=== PATIENT | female | born 1985 | race Caucasian/White ===

== ENCOUNTER 2020-01-29 17:33 | Emergency (ER) | payer OTHER ==
[~2020-01-29] VITALS: Ht 167.6 cm; Wt 83.9 kg
[2020-01-29 18:45] VITALS: BP 111/66
--- NOTE | 2020-01-29 19:17 | NUR ---
PCR SWAB collected via [employer] route.
--- NOTE | 2020-01-29 19:53 | NUR ---
PT DISCHARGED BY IZABELLA SERRANO WITH VSS.
== END 2020-01-29 19:54 | disposition home or self-care (01) ==
LOC: MED 17:33
DX: R05 Cough (principal); Z20.828 Contact with and (suspected) exposure to other viral communicable diseases
CPT/HCPCS: 71045; 99284; U0003

== ENCOUNTER 2022-06-29 11:22 | Emergency (ER) | payer OTHER ==
[~2022-06-29] VITALS: Ht 160 cm; Wt 106.6 kg
[2022-06-29 11:26] VITALS: BP 159/82
[2022-06-29] MEDS ORDERED: IBUPROFEN 600 MG TAB PO ONE (12:05)
--- NOTE | 2022-06-29 12:11 | NUR ---
PT TAKEN TO XRAY VIA WHEELCHAIR
[2022-06-29] MEDS ORDERED: IBUP-2213 PO (12:51)
== END 2022-06-29 13:12 | disposition home or self-care (01) ==
LOC: MED 11:22
DX: M77.32 Calcaneal spur, left foot (principal); E11.9 Type 2 diabetes mellitus without complications; Z79.1 Long term (current) use of non-steroidal anti-inflammatories (NSAID)
CPT/HCPCS: 73610; 99283

== ENCOUNTER 2023-02-21 15:24 | Emergency (ER) | payer OTHER ==
[~2023-02-21] VITALS: Ht 162.6 cm; Wt 96.6 kg
[~2023-02-21 15:24] MED LIST: IBUP-2213 PO
[2023-02-21 15:44] VITALS: BP 141/97; PULSE 76; RESP 18; TEMP 98.1; O2SAT 99
[2023-02-21 16:38] LABS: BASOPHILS % (AUTO) 0.2 % (0.0-2.0); EOSINOPHILS # (AUTO) 0.1 K/uL (0-0.4); EOSINOPHILS % (AUTO) 0.5 % (0.0-4.0); HEMATOCRIT 37.9 % (36-48); HEMOGLOBIN 12.5 g/dL (12.0-16.0); LYMPHOCYTES # (AUTO) 3.3 K/uL (2.5-16.5); LYMPHOCYTES % (AUTO) 27.1 % (20.5-51.1); MEAN CORPUSCULAR HEMOGLOBIN 26 pg (27-31); MEAN CORPUSCULAR HGB CONC 33 g/dL (33-37); MEAN CORPUSCULAR VOLUME 80.1 fL (80-94); MONOCYTES # (AUTO) 0.8 K/uL (0.8-1.0); MONOCYTES % (AUTO) 6.6 % (1.7-9.3); NEUTROPHILS # (AUTO) 7.9 K/uL (1.8-7.7); NEUTROPHILS % (AUTO) 65.6 % (42.2-75.2); PLATELET COUNT (AUTO) 220 K/uL (140-450); RED BLOOD CELL COUNT(AUTO) 4.73 MIL/uL (4.20-5.40); RED CELL DISTRIBUTION WIDTH 16.4 % (11.6-13.7)
[2023-02-21 16:41] LABS: APPEARANCE,URINE SL CLOUDY (CLEAR); BILIRUBIN,URINE NEGATIVE (NEGATIVE); BLOOD, URINE 3+ (NEGATIVE); COLOR,URINE YELLOW (YELLOW); LEUKOCYTE ESTERASE ,URINE TRACE (NEGATIVE); NITRITE, URINE POSITIVE (NEGATIVE); PROTEIN,URINE TRACE (NEGATIVE); UGLUCOSE NEGATIVE (NEGATIVE); UROBILINOGEN,URINE 0.2 EU/dL (0.2 - 1)
[2023-02-21 16:51] LABS: BACTERIA,URINE 10-30 (MOD) /HPF (None Seen); RBC,URINE 11-20 (MOD) /HPF (0-5); SQUAMOUS EPITHELIAL CELL,UR 0-3 (FEW) /LPF (0-3 (FEW))
[2023-02-21 16:53] LABS: ANION GAP 11.4 (8-16); CALCIUM 9.5 mg/dL (8.5-10.1); CARBON DIOXIDE 29.3 mmol/L (21-32); CREATININE 0.6 mg/dL (0.6-1.3); POTASSIUM 3.7 mmol/L (3.5-5.1)
[2023-02-21] MEDS ORDERED: ACETAMINOPHEN EXTRA STRENGTH 500 MG TAB PO ONE (18:00)
[2023-02-21] MEDS ORDERED: MORPHINE SULFATE 4 MG/ML SYR IM ONE (18:00)
[2023-02-21 18:01] VITALS: TEMP 98.1
[2023-02-21] MEDS ORDERED: MORPHINE SULFATE 4 MG/ML SYR ONE (20:57)
[2023-02-21] MEDS ORDERED: cefTRIAXone 1,000 MG VIAL ONE (20:57)
[2023-02-21 22:14] VITALS: BP 131/60; PULSE 77; RESP 19; O2SAT 98
[2023-02-21] MEDS ORDERED: ESTROGENS CONJUGATED 25 MG INJ VIAL IM ONE (23:15)
[2023-02-21] MEDS ORDERED: MEDR10TA PO (23:31)
[2023-02-22] MEDS ORDERED: medroxyPROGESTERone 10 MG TAB PO STA (00:02)
== END 2023-02-22 00:39 | disposition home or self-care (01) ==
LOC: MED 15:24
DX: N93.8 Other specified abnormal uterine and vaginal bleeding (principal); N39.0 Urinary tract infection, site not specified; E11.9 Type 2 diabetes mellitus without complications; Z79.899 Other long term (current) drug therapy; Z79.1 Long term (current) use of non-steroidal anti-inflammatories (NSAID)
CPT/HCPCS: 36415; 76830; 80048; 81001; 81025; 85025; 87086; 96365; 99285; J0696; Q0092; J2270

== ENCOUNTER 2023-03-16 11:20 | Emergency (ER) | payer OTHER ==
[~2023-03-16] VITALS: Ht 162.6 cm; Wt 98.4 kg
[~2023-03-16 11:20] MED LIST changes: +MEDR10TA PO
[2023-03-16 11:47] VITALS: BP 155/68; PULSE 74; RESP 20; TEMP 98.2; O2SAT 98
[2023-03-16] MEDS ORDERED: KETOROLAC 30 MG/ML VIAL IM ONE (12:25)
[2023-03-16 12:58] LABS: APPEARANCE,URINE SL CLOUDY (CLEAR); BILIRUBIN,URINE NEGATIVE (NEGATIVE); BLOOD, URINE 3+ (NEGATIVE); COLOR,URINE YELLOW (YELLOW); LEUKOCYTE ESTERASE ,URINE TRACE (NEGATIVE); NITRITE, URINE NEGATIVE (NEGATIVE); PROTEIN,URINE NEGATIVE (NEGATIVE); UGLUCOSE NEGATIVE (NEGATIVE); UROBILINOGEN,URINE 0.2 EU/dL (0.2 - 1)
[2023-03-16] MEDS: KETOROLAC 30 MG/ML VIAL IVP SCH (13:01)
[2023-03-16 13:06] LABS: BASOPHILS % (AUTO) 0.3 % (0.0-2.0); EOSINOPHILS % (AUTO) 0.3 % (0.0-4.0); HEMATOCRIT 29.7 % (36-48); HEMOGLOBIN 9.4 g/dL (12.0-16.0); LYMPHOCYTES # (AUTO) 1.7 K/uL (2.5-16.5); LYMPHOCYTES % (AUTO) 14.3 % (20.5-51.1); MEAN CORPUSCULAR HEMOGLOBIN 25 pg (27-31); MEAN CORPUSCULAR HGB CONC 32 g/dL (33-37); MEAN CORPUSCULAR VOLUME 79.7 fL (80-94); MONOCYTES # (AUTO) 0.7 K/uL (0.8-1.0); MONOCYTES % (AUTO) 5.6 % (1.7-9.3); NEUTROPHILS # (AUTO) 9.6 K/uL (1.8-7.7); NEUTROPHILS % (AUTO) 79.5 % (42.2-75.2); PLATELET COUNT (AUTO) 300 K/uL (140-450); RED BLOOD CELL COUNT(AUTO) 3.72 MIL/uL (4.20-5.40); WHITE BLOOD COUNT (AUTO) 12.1 K/uL (4.8-10.8)
[2023-03-16 13:22] LABS: ALBUMIN 3.5 g/dL (3.4-5.0); ANION GAP 13.2 (8-16); CALCIUM 9.1 mg/dL (8.5-10.1); CARBON DIOXIDE 24.9 mmol/L (21-32); CREATININE 0.7 mg/dL (0.6-1.3); POTASSIUM 4.1 mmol/L (3.5-5.1); TOTAL BILIRUBIN 0.7 mg/dL (0.0-1.0); TOTAL PROTEIN, SERUM 8.4 g/dL (6.4-8.2)
[2023-03-16 13:27] LABS: RBC,URINE 11-20 (MOD) /HPF (0-5)
[2023-03-16 13:28] LABS: BACTERIA,URINE 0-2 /HPF (None Seen); MUCUS,URINE None Seen /LPF (None Seen); SQUAMOUS EPITHELIAL CELL,UR 0-3 (FEW) /LPF (0-3 (FEW)); WBC,URINE 0-5 /HPF (0-5)
[2023-03-16] MEDS ORDERED: IBUP-2213 PO (13:57)
[2023-03-16] MEDS ORDERED: ACET-8905 PO (13:58)
[2023-03-16] MEDS ORDERED: ONDA-188 PO (13:58)
[2023-03-16] MEDS ORDERED: TAMS0.4C96 PO (13:58)
[2023-03-16] MEDS: NACL 0.9% 1,000 ML IV SCH (14:44)
[2023-03-16] MEDS: ONDANSETRON 4 MG/2 ML VIAL IVP SCH (14:45)
[2023-03-16 14:55] VITALS: BP 148/66; PULSE 69; RESP 18; TEMP 98.1; O2SAT 98
== END 2023-03-16 11:40 | disposition home or self-care (01) ==
LOC: MED 11:20
DX: N20.0 Calculus of kidney (principal); R31.9 Hematuria, unspecified; E11.9 Type 2 diabetes mellitus without complications; Z79.899 Other long term (current) drug therapy; Z79.1 Long term (current) use of non-steroidal anti-inflammatories (NSAID)
CPT/HCPCS: 36415; 74176; 80053; 81001; 81025; 85025; 96374; 99285; J1885

== ENCOUNTER 2023-07-20 16:10 | Emergency (ER) | payer OTHER ==
[~2023-07-20] VITALS: Ht 162.6 cm; Wt 89.4 kg
[~2023-07-20 16:10] MED LIST changes: +ACET-8905 PO; +ONDA-188 PO; +TAMS0.4C96 PO
[2023-07-20 16:16] VITALS: BP 170/72; PULSE 88; RESP 18; TEMP 97.7; O2SAT 99
[2023-07-20 17:09] LABS: BASOPHILS % (AUTO) 0.2 % (0.0-2.0); HEMATOCRIT 37.2 % (36-48); HEMOGLOBIN 11.9 g/dL (12.0-16.0); LYMPHOCYTES # (AUTO) 1.7 K/uL (2.5-16.5); LYMPHOCYTES % (AUTO) 13.3 % (20.5-51.1); MEAN CORPUSCULAR HEMOGLOBIN 24 pg (27-31); MEAN CORPUSCULAR HGB CONC 32 g/dL (33-37); MEAN CORPUSCULAR VOLUME 75.5 fL (80-94); MONOCYTES # (AUTO) 0.4 K/uL (0.8-1.0); MONOCYTES % (AUTO) 2.9 % (1.7-9.3); NEUTROPHILS # (AUTO) 10.5 K/uL (1.8-7.7); NEUTROPHILS % (AUTO) 83.6 % (42.2-75.2); PLATELET COUNT (AUTO) 214 K/uL (140-450); RED BLOOD CELL COUNT(AUTO) 4.92 MIL/uL (4.20-5.40); RED CELL DISTRIBUTION WIDTH 16.4 % (11.6-13.7); WHITE BLOOD COUNT (AUTO) 12.5 K/uL (4.8-10.8)
[2023-07-20 17:23] LABS: ANION GAP 13.9 (8-16); CALCIUM 9.7 mg/dL (8.5-10.1); CARBON DIOXIDE 24.8 mmol/L (21-32); POTASSIUM 4.7 mmol/L (3.5-5.1)
[2023-07-20] MEDS: INSULIN LISPRO 100 UNITS/ML VIAL SUBQ ONE (18:06)
[2023-07-20] MEDS: BLOOD GLUCOSE MONITORING 1 DEV DEV FS ONE (19:42)
[2023-07-20] MEDS ORDERED: LORA10TA19 PO (20:34)
[2023-07-20] MEDS ORDERED: PROM118S5 PO (20:34)
[2023-07-20] MEDS ORDERED: FLONAS NS (20:38)
== END 2023-07-20 20:53 | disposition home or self-care (01) ==
LOC: MED 16:10
DX: R07.81 Pleurodynia (principal); T50.995A Adverse effect of other drugs, medicaments and biological substances, initial encounter; J20.9 Acute bronchitis, unspecified; E11.65 Type 2 diabetes mellitus with hyperglycemia; Z79.1 Long term (current) use of non-steroidal anti-inflammatories (NSAID); Z79.899 Other long term (current) drug therapy; Y92.89 Other specified places as the place of occurrence of the external cause
CPT/HCPCS: 36415; 71045; 80048; 84484; 85025; 85379; 93005; 96372; 99285; J1815

== ENCOUNTER 2023-10-21 08:46 | Emergency (ER) | payer OTHER ==
[~2023-10-21] VITALS: Ht 162.6 cm; Wt 81.6 kg
[~2023-10-21 08:46] MED LIST changes: +FLONAS NS; +LORA10TA19 PO; +PROM118S5 PO
[2023-10-21 09:13] VITALS: BP 152/79; PULSE 79; RESP 20; TEMP 98.9
[2023-10-21 10:12] VITALS: O2SAT 98
[2023-10-21 10:37] LABS: FLU A ANTIGEN negative (NEGATIVE); FLU B ANTIGEN NEGATIVE (NEGATIVE)
[2023-10-21] MEDS ORDERED: ALBU0.0912 IH (10:45)
[2023-10-21] MEDS ORDERED: PRED20TA5 PO (10:45)
[2023-10-21] MEDS ORDERED: AZIT250T4 PO (10:45)
[2023-10-21] MEDS: predniSONE 20 MG TAB PO ONE (10:48)
[2023-10-21] MEDS: KETOROLAC 60 MG/2 ML VIAL IM ONE (10:52)
[2023-10-21 11:18] VITALS: BP 127/60; PULSE 70; RESP 18; O2SAT 99
== END 2023-10-21 11:28 | disposition home or self-care (01) ==
LOC: MED 08:46
DX: R05.9 Cough, unspecified (principal); R06.02 Shortness of breath; R07.89 Other chest pain; Z20.822 Contact with and (suspected) exposure to COVID-19; E11.9 Type 2 diabetes mellitus without complications; Z79.899 Other long term (current) drug therapy
CPT/HCPCS: 71045; 81025; 87426; 87804; 96372; 99284; J1885; J7512; Q0092

== ENCOUNTER 2023-10-27 17:48 | Emergency (ER) | payer OTHER ==
[~2023-10-27] VITALS: Ht 162.6 cm; Wt 83.9 kg
[~2023-10-27 17:48] MED LIST changes: +ALBU0.0912 IH; +AZIT250T4 PO; +PRED20TA5 PO
[2023-10-27 18:05] VITALS: BP 128/71; PULSE 75; RESP 0; TEMP 98.6; O2SAT 21
[2023-10-27 18:30] VITALS: O2SAT 98
[2023-10-27 18:37] LABS: BASOPHILS # (AUTO) 0.1 K/uL (0.00-0.22); BASOPHILS % (AUTO) 0.8 % (0.0-2.0); EOSINOPHILS # (AUTO) 0.2 K/uL (0-0.4); EOSINOPHILS % (AUTO) 1.2 % (0.0-4.0); HEMATOCRIT 40.1 % (36-48); LYMPHOCYTES % (AUTO) 29.4 % (20.5-51.1); MEAN CORPUSCULAR HEMOGLOBIN 25 pg (27-31); MEAN CORPUSCULAR HGB CONC 32 g/dL (33-37); MEAN CORPUSCULAR VOLUME 76.8 fL (80-94); MONOCYTES # (AUTO) 0.5 K/uL (0.8-1.0); MONOCYTES % (AUTO) 3.7 % (1.7-9.3); NEUTROPHILS # (AUTO) 8.8 K/uL (1.8-7.7); NEUTROPHILS % (AUTO) 64.9 % (42.2-75.2); PLATELET COUNT (AUTO) 215 K/uL (140-450); RED BLOOD CELL COUNT(AUTO) 5.23 MIL/uL (4.20-5.40); RED CELL DISTRIBUTION WIDTH 16.1 % (11.6-13.7); WHITE BLOOD COUNT (AUTO) 13.5 K/uL (4.8-10.8)
[2023-10-27 18:58] LABS: CALCIUM 9.4 mg/dL (8.5-10.1); CREATININE 0.8 mg/dL (0.6-1.3)
[2023-10-27 19:20] VITALS: BP 128/71; PULSE 75; RESP 0; TEMP 98.6
[2023-10-27 19:20] LABS: INR 0.95 (0.8-1.2); PARTIAL THROMBOPLASTIN TIME 26.9 secs (22-35.6)
[2023-10-27 19:25] VITALS: O2SAT 98
== END 2023-10-27 20:00 | disposition home or self-care (01) ==
LOC: MED 17:48
DX: J20.9 Acute bronchitis, unspecified (principal); E11.9 Type 2 diabetes mellitus without complications; Z79.899 Other long term (current) drug therapy
CPT/HCPCS: 36415; 71045; 80048; 84484; 84702; 85025; 85610; 85730; 93005; 99285; Q0092